=== PATIENT | male | born 1955 | race Caucasian/White ===

== ENCOUNTER 2017-02-18 12:08 | Day surgery (SDC) | payer OTHER ==
[2017-02-14 17:25] VITALS: BMI 22.3
[~2017-02-18 12:08] MED LIST: LEVOFLOXACIN 500 MG PREMIX BAG IVPB ONE
[2017-02-18] MEDS ORDERED: LEVOFLOXACIN 500 MG IVPB 100 ML IVPB ONE (14:14)
[2017-02-18] MEDS ORDERED: LEVOFLOXACIN 500 MG PREMIX BAG IVPB ONE (14:18)
[2017-02-18] MEDS ORDERED: MIDAZOLAM HCL 2 MG/2 ML SINGLE DOSE VIAL ONE ×3 (14:19→14:24)
--- NOTE | 2017-02-18 15:17 | OP ---
Operative Note - Note: Operative Date: 02/18/17 Pre-Operative Diagnosis: right renal stone Operation: right eswl Findings: [id number] right renal stone Post-Operative Diagnosis: Same as Pre-op Surgeon: Eddi Chaudhari Anesthesia: General
[2017-02-18 15:28] VITALS: TEMP 98
[2017-02-18 16:29] VITALS: BP 125/70; PULSE 68
--- NOTE | 2017-02-19 10:41 | OP ---
DATE OF OPERATION: 02/18/2017 PREOPERATIVE DIAGNOSIS: Right renal stone. POSTOPERATIVE DIAGNOSIS: Right renal stone. PROCEDURE: Right extracorporeal shock wave lithotripsy. ATTENDING SURGEON: Aurelio Carney MD ANESTHESIA: General. OPERATION: The patient was brought in the operating room, placed in supine position on the operating room table. Ultrasonography and fluoroscopy were performed. A 4 mm x 4 mm right lower pole stone was identified. General anesthesia was administered at this point. The patient was given a preoperative dose of Levaquin. At this point, the extracorporeal shock wave lithotripsy was started. Next, 3000 impulses of 20 joules of power were administered to the stone, and excellent fragmentation of the stone was noted. The disposition of the patient was to the recovery room. There were no complications noted. AURELIO CARNEY M.D. /[id number]
== END 2017-02-18 16:29 | disposition home or self-care (01) ==
LOC: JASU-SURG 12:08
PROVIDERS: ATTEND Urology
PROC: 0TF3XZZ Fragmentation in Right Kidney Pelvis, External Approach (ICD-10-PCS; principal; 2017-02-18 14:19)
DX: N20.0 Calculus of kidney (principal)
CPT/HCPCS: 94760

== ENCOUNTER 2020-02-15 11:15 | Day surgery (SDC) | payer OTHER ==
[2020-02-12 14:52] VITALS: BMI 22.3
[2020-02-15] MEDS ORDERED: KETOROLAC TROMETHAMINE 30 MG/1 ML VIAL ONE (14:02)
[2020-02-15] MEDS ORDERED: MIDAZOLAM HCL 2 MG/2 ML SINGLE DOSE VIAL ONE (14:03)
--- NOTE | 2020-02-15 14:41 | OP ---
Operative Note - Note: Operative Date: 02/15/20 Pre-Operative Diagnosis: Right renal stone Operation: Right ESWL Findings: 5 mm mid pole Right renal stone Post-Operative Diagnosis: Same as Pre-op Surgeon: Eddi Chaudhari Anesthesia: Local Estimated Blood Loss (mls): 0 Drains & Tubes with Location: Right JJ stone Operative Report Dictated: Yes
[2020-02-15 14:46] VITALS: TEMP 97.3
[2020-02-15 15:33] VITALS: BP 135/87; PULSE 62
--- NOTE | 2020-02-16 09:31 | OP ---
DATE OF OPERATION: 02/15/2020 PREOPERATIVE DIAGNOSIS: Right renal stone. POSTOPERATIVE DIAGNOSIS: Right renal stone. PROCEDURE: Right extracorporeal shockwave lithotripsy. ATTENDING: Aurelio Carney MD ANESTHESIA: Fractional. DESCRIPTION OF OPERATION: Patient was brought in the operating room and placed in the supine position on the operating room table. Ultrasonography and fluoroscopy were performed. A 5-mm right midpole stone was identified. At this point anesthesia and preoperative antibiotics were administered. It must be noted the patient has a right ureteral stent in position; 2500 impulses at 17 joules of power were administered to the stone with excellent fragmentation noted under realtime ultrasonography and fluoroscopy. No complications were noted. The patient tolerated the procedure very well. AURELIO CARNEY M.D. /[id number]
== END 2020-02-15 15:54 | disposition home or self-care (01) ==
LOC: JASU-SURG 11:15
PROVIDERS: ATTEND Urology
PROC: 0TF3XZZ Fragmentation in Right Kidney Pelvis, External Approach (ICD-10-PCS; principal; 2020-02-15 13:00)
DX: N20.0 Calculus of kidney (principal)